=== PATIENT | male | born 1985 | race African-American/Black ===

== ENCOUNTER 2018-07-19 03:21 | Emergency (ER) | payer OTHER, BC ==
--- NOTE | 2018-07-19 04:15 | XR ---
LEFT SHOULDER 3 VIEWS INDICATION: Left shoulder pain COMPARISON: None FINDINGS: AP internal rotation, AP external rotation, and scapular Y views of the left shoulder are obtained. The glenohumeral and acromioclavicular joints are normally aligned. There is no evidence of acute fracture. IMPRESSION: No acute fracture or dislocation identified.
[2018-07-19] MEDS ORDERED: KETOROLAC 30 MG/ML 1 ML VIAL IM STA (04:36)
--- NOTE | 2018-07-19 04:37 | ED ---
Upper Extremity HPI - General Chief Complaint: Extremity Injury, Upper Stated Complaint: Shoulder and neck pain Time Seen by Provider: 07/19/18 03:46 Source: patient, family Mode of arrival: ambulatory Limitations: no limitations - History of Present Illness Initial Comments: Rolando is a pleasant 33-year-old woman who presents the emergency department to [facility] for reevaluation of chronic left arm pain. Patient reports that approximately 3 years ago he was at work when he felt popping in his arm, he was evaluated by medical at work at that time and subsequent followed up with primary care. Patient reports that he has suffered with chronic pain in his left shoulder since that time. Patient reports that earlier this week he was moving something heavy when he felt popping in his shoulder again. He reports since that time he's felt tension in the muscles surrounding his shoulder specifically his traps going up to his neck and tenderness in the shoulder. Patient reports that he feels like his shoulder is popping and clicking more with any movement. He denies any weakness. He reports that and wanes daily dipping on his activities. He denies any acute injury today. Patient reports he needs a note for work so that he make time to see a physician about this chronic problem. - Related Data Previous Rx's Medication Instructions Recorded Ibuprofen [Motrin] 800 mg PO TID #30 tab 07/19/18 Allergies Allergy/AdvReac Type Severity Reaction Status Date / Time No Known Allergies Allergy Verified 07/19/18 03:38 Review of Systems ROS Statement: Those systems with pertinent positive or pertinent negative responses have been documented in the HPI. ROS Other: All systems not noted in ROS Statement are negative. Past Medical History Past Medical History: No Reported History History of Any Multi-Drug Resistant Organisms: None Reported Past Surgical History: No Surgical Hx Reported Past Psychological History: No Psychological Hx Reported Smoking Status: Never smoker Past Alcohol Use History: None Reported Past Drug Use History: None Reported General Exam - General Exam Comments Initial Comments: Physical Exam GENERAL: Patient is well-developed and well-nourished. Patient is nontoxic and well-hydrated and is in no distress. HENT: Normocephalic, Atraumatic. EYES: PERRL, EOMI PULMONARY: Unlabored respirations. No audible rales rhonchi or wheezing was noted. CARDIOVASCULAR: There is a regular rate and rhythm without any murmurs gallops or rubs. ABDOMEN: Soft and nontender with normal bowel sounds. SKIN: Skin is clear with no lesions or rashes and otherwise unremarkable. : Deferred NEUROLOGIC: Patient is alert and oriented x3. Moving all extremities spontaneously MUSCULOSKELETAL: Normal extremities with adequate strength and full range of motion. No lower extremity swelling or edema. No calf tenderness. Full range of motion of the left shoulder, no weakness on exam of the rotator cuff there is some clicking heard with range of motion of the left shoulder Left upper extremity is neurovascularly intact PSYCHIATRIC: Normal psychiatric evaluation. Limitations: no limitations Limitations: no limitations Course Vital Signs 07/19/18 07/19/18 03:33 04:50 Temperature 98.3 F 98.0 F Pulse Rate 56 L 62 Respiratory 20 18 Rate Blood Pressure 135/91 127/78 O2 Sat by Pulse 98 98 Oximetry Medical Decision Making - Medical Decision Making The patient was seen and evaluated history is obtained from the patient Patient has a chronic injury to left shoulder which is exacerbated regularly by his physically demanding job, patient does report exacerbation of his chronic shoulder pain after lifting something heavy earlier in the week. They patient reports he feels that his shoulders clicking in his muscles are very tight Exam with no acute findings, patient does have some clicking in his left shoulder likely related to chronic injury I did discuss with the patient that he will need to follow up with orthopedics for further evaluation She will be given Toradol for his muscular discomfort and referred to orthopedics for follow-up. Patient was provided a work note to have 2 days off with the plan of resting his arm and contacting orthopedics for follow-up. Disposition Clinical Impression: Strain of shoulder Disposition: HOME SELF-CARE Condition: Stable Instructions (If sedation given, give patient instructions): Rotator Cuff Injury (ED) Prescriptions: Ibuprofen [Motrin] 800 mg PO TID #30 tab Is patient prescribed a controlled substance at d/c from ED?: No Referrals: None,Stated [Primary Care Provider] - 1-2 days [facility] [NON-[facility]FF] - 1-2 days lC Kirby MD [REFERRING] - 1-2 days Christopher Vásquez MD [STAFF PHYSICIAN] - 1-2 days
[2018-07-19 05:10] VITALS: BP 127/78; PULSE 62; RESP 18; TEMP 98
== END 2018-07-19 04:52 | disposition home or self-care (01) ==
LOC: EC 03:21
DX: S46.912A Strain of unspecified muscle, fascia and tendon at shoulder and upper arm level, left arm, initial encounter (principal); G89.29 Other chronic pain; X50.9XXA Other and unspecified overexertion or strenuous movements or postures, initial encounter; Y92.69 Other specified industrial and construction area as the place of occurrence of the external cause; Y99.0 Civilian activity done for income or pay
CPT/HCPCS: 73030; 99283; 96372; J1885

== ENCOUNTER 2018-08-05 03:33 | Emergency (ER) | payer BC ==
[2018-08-05 03:42] VITALS: BP 132/98; PULSE 62; RESP 18; TEMP 98.3
--- NOTE | 2018-08-05 04:37 | XR ---
EXAM: XR Pelvis, Complete CLINICAL HISTORY: Pain TECHNIQUE: Multiple views of the bones of the pelvis. COMPARISON: No relevant prior studies available. FINDINGS: Bones/joints: No acute findings. No lytic or blastic lesions. Soft tissues: Unremarkable. IMPRESSION: No acute findings
--- NOTE | 2018-08-05 04:46 | ED ---
Back Pain HPI - General Chief Complaint: Back Pain/Injury Stated Complaint: Back Pain Time Seen by Provider: 08/05/18 03:45 Source: patient Limitations: no limitations - History of Present Illness Initial Comments: This patient is a 33-year-old man who presents to be evaluated for right low back pain. He states that this has come on over the past few days when he is working. 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 He States his employer has had him seen at the medical, where he is reportedly given nonsteroidals which helped a little but did not fully relieve the pain. The patient does not have any weakness or numbness of the legs. He has not had any change in bladder or bowel function. No abdominal pain. He does state that when he goes home and rest the pain clears but it does recur after working and bending lifting. MD Complaint: back pain -: days(s) Similar Symptoms Previously: No Place: work Radiation: none Severity: moderate Quality: aching Consistency: constant Worsens With: movement Context: while lifting, bending Associated Symptoms: denies other symptoms - Related Data Previous Rx's Medication Instructions Recorded Ibuprofen [Motrin] 800 mg PO TID #30 tab 07/19/18 Ibuprofen 800 mg PO TID #20 tablet 08/05/18 Allergies Allergy/AdvReac Type Severity Reaction Status Date / Time No Known Allergies Allergy Verified 08/05/18 03:42 Review of Systems ROS Statement: Those systems with pertinent positive or pertinent negative responses have been documented in the HPI. ROS Other: All systems not noted in ROS Statement are negative. Constitutional: Denies: fever, chills, weakness Respiratory: Denies: cough Gastrointestinal: Denies: abdominal pain, vomiting, diarrhea, constipation Genitourinary: Denies: dysuria, hematuria Musculoskeletal: Reports: as per HPI, back pain Skin: Denies: rash Neurological: Denies: weakness, numbness, paresthesias Past Medical History Past Medical History: No Reported History History of Any Multi-Drug Resistant Organisms: None Reported Past Surgical History: No Surgical Hx Reported Past Psychological History: No Psychological Hx Reported Smoking Status: Never smoker Past Alcohol Use History: None Reported Past Drug Use History: None Reported General Exam Limitations: no limitations General appearance: alert, in no apparent distress Head exam: Present: atraumatic, normocephalic Eye exam: Present: normal appearance. Absent: scleral icterus, conjunctival injection Respiratory exam: Present: normal lung sounds bilaterally. Absent: respiratory distress, wheezes, rales, rhonchi, stridor Cardiovascular Exam: Present: regular rate, normal rhythm, normal heart sounds. Absent: systolic murmur, diastolic murmur, rubs, gallop GI/Abdominal exam: Absent: soft, tenderness, guarding, rebound, pulsatile mass Extremities exam: Present: normal inspection, normal capillary refill. Absent: pedal edema Back exam: Present: normal inspection, full ROM, tenderness (Patient has some mild tenderness near the area of the right SI joint. No evidence of trauma. No deformity.), paraspinal tenderness. Absent: CVA tenderness (R), CVA tenderness (L), vertebral tenderness Neurological exam: Present: alert, normal gait, reflexes normal. Absent: motor sensory deficit Skin exam: Present: warm, dry, intact, normal color. Absent: rash Course Vital Signs 08/05/18 03:39 Temperature 98.3 F Pulse Rate 62 Respiratory 18 Rate Blood Pressure 132/98 O2 Sat by Pulse 97 Oximetry Disposition Clinical Impression: Mechanical back pain Disposition: HOME SELF-CARE Condition: Good Instructions (If sedation given, give patient instructions): Acute Low Back Pain (ED) Prescriptions: Ibuprofen 800 mg PO TID #20 tablet Is patient prescribed a controlled substance at d/c from ED?: No Referrals: Gilles Johnson DO [Primary Care Provider] - 1-2 days Jose Armando Mcneill DO [Doctor of Osteopathic Medicine] - 1-2 days
== END 2018-08-05 05:23 | disposition home or self-care (01) ==
LOC: EC 03:33
DX: M54.5 Low back pain (principal)
CPT/HCPCS: 72202; 99283

== ENCOUNTER 2021-01-29 01:35 | Emergency (ER) | payer BC ==
[2021-01-29 02:18] VITALS: BP 183/78; PULSE 106; RESP 18; TEMP 97.4
[2021-01-29] MEDS ORDERED: PROPARACAINE 0.5% OPHTH DROPS 15 ML BTL LEFT EYE STA (03:03)
[2021-01-29] MEDS ORDERED: KETOTIFEN 0.025% OPHTH DROPS 5 ML BTL LEFT EYE STA (03:03)
[2021-01-29] MEDS ORDERED: dexAMETHasone 2 MG TAB PO STA (03:08)
[2021-01-29] MEDS ORDERED: diphenhydrAMINE 50 MG CAP PO STA (03:08)
[2021-01-29] MEDS ORDERED: FAMOTIDINE 20 MG TAB PO STA (03:08)
[2021-01-29] MEDS ORDERED: POLYMYXIN B-TRIMETHOPRIM SULF (10,000-1) OPHTH DROPS 10 ML BTL LEFT EYE STA (03:09)
--- NOTE | 2021-01-29 03:16 | ED ---
Eye Problem HPI - General Chief complaint: ENT Stated complaint: Eye irritation Time Seen by Provider: 01/29/21 03:02 Source: patient, RN notes reviewed, old records reviewed Mode of arrival: ambulatory Limitations: no limitations - History of Present Illness Initial comments: This is a 35-year-old male to the emergency room today. Patient presents today for evaluation of left eye pain and drainage swelling. Patient does have history of high blood pressure not on high blood pressure medications otherwise has no medical history takes no medications. A consistent with symptoms about a day and a half with no change in vision. No trauma, no other complaints MD chief complaint: eye pain, eye redness -: days(s) Onset Description: gradual Location: left eye Place: home If Injury: none Eye Symptoms: redness, foreign body sensation, itching, discharge Severity: moderate Severity scale (1-10): 4 Consistency: constant Context: recent uri Associated Symptoms: none Treatments Prior to Arrival: none - Related Data Previous Rx's Medication Instructions Recorded Ibuprofen [Motrin] 800 mg PO TID #30 tab 07/19/18 Ibuprofen 800 mg PO TID #20 tablet 08/05/18 Allergies Allergy/AdvReac Type Severity Reaction Status Date / Time No Known Allergies Allergy Verified 01/29/21 02:18 Review of Systems ROS Statement: Those systems with pertinent positive or pertinent negative responses have been documented in the HPI. ROS Other: All systems not noted in ROS Statement are negative. Past Medical History Past Medical History: No Reported History History of Any Multi-Drug Resistant Organisms: None Reported Past Surgical History: No Surgical Hx Reported Past Psychological History: No Psychological Hx Reported Smoking Status: Current some day smoker Past Alcohol Use History: None Reported Past Drug Use History: Marijuana General Exam Limitations: no limitations General appearance: alert, in no apparent distress Head exam: Present: atraumatic, normocephalic, normal inspection Eye exam: Present: normal appearance, PERRL, EOMI, other (Significant left eye chemosis to the left lateral aspect). Absent: scleral icterus, conjunctival injection, periorbital swelling ENT exam: Present: normal exam, mucous membranes moist Neck exam: Present: normal inspection. Absent: tenderness, meningismus, lymphadenopathy Respiratory exam: Present: normal lung sounds bilaterally. Absent: respiratory distress, wheezes, rales, rhonchi, stridor Cardiovascular Exam: Present: regular rate, normal rhythm, normal heart sounds. Absent: systolic murmur, diastolic murmur, rubs, gallop, clicks GI/Abdominal exam: Present: soft, normal bowel sounds. Absent: distended, tenderness, guarding, rebound, rigid Extremities exam: Present: normal inspection, full ROM, normal capillary refill. Absent: tenderness, pedal edema, joint swelling, calf tenderness Back exam: Present: normal inspection Neurological exam: Present: alert, oriented X3, CN II-XII intact Psychiatric exam: Present: normal affect, normal mood Skin exam: Present: warm, dry, intact, normal color. Absent: rash Course Vital Signs 01/29/21 02:10 Temperature 97.4 F L Pulse Rate 106 H Respiratory 18 Rate Blood Pressure 183/78 O2 Sat by Pulse 93 L Oximetry - Reevaluation(s) Reevaluation #1: 01/29/21 03:14 Medical record is reviewed Reevaluation #2: 01/29/21 03:14 symptoms improved here in the ER Reevaluation #3: 01/29/21 03:14 Patient informed of results and questions answered Medical Decision Making - Medical Decision Making 35 male presented today for evaluation of left eye drainage and swelling. Patient does have significant chemosis of his left lateral conjunctiva, he does have some green drainage from his we will treat as both bacterial or ALLERGIC chemosis, patient can be discharged home Disposition Clinical Impression: Allergic conjunctivitis, Chemosis of left conjunctiva Disposition: HOME SELF-CARE Condition: Good Instructions (If sedation given, give patient instructions): Conjunctivitis (ED) Is patient prescribed a controlled substance at d/c from ED?: No Referrals: Gilles Johnson DO [Primary Care Provider] - 1-2 days Domingo Ross MD [STAFF PHYSICIAN] - 1-2 days
== END 2021-01-29 04:07 | disposition home or self-care (01) ==
LOC: EC 01:35
DX: H10.12 Acute atopic conjunctivitis, left eye (principal); H11.422 Conjunctival edema, left eye; F17.200 Nicotine dependence, unspecified, uncomplicated; F12.90 Cannabis use, unspecified, uncomplicated; Z79.1 Long term (current) use of non-steroidal anti-inflammatories (NSAID)
CPT/HCPCS: 99283; J8540

== ENCOUNTER 2021-03-17 15:36 | Emergency (ER) | payer BC ==
[2021-03-17 15:43] VITALS: TEMP 98.6
[2021-03-17 19:30] VITALS: BP 134/77; PULSE 74; RESP 20
--- NOTE | 2021-03-17 19:46 | XR ---
EXAMINATION TYPE: XR chest 2V DATE OF EXAM: 03/17/2021 COMPARISON: NONE HISTORY: Difficulty breathing TECHNIQUE: 2 views FINDINGS: Heart and mediastinum are normal. Lungs are clear. Diaphragm is normal. Bony thorax appears normal. IMPRESSION: Normal chest
[2021-03-17] MEDS ORDERED: CLINDAMYCIN 150 MG CAP PO STA (20:03)
--- NOTE | 2021-03-17 20:03 | ED ---
General Adult HPI - General Chief complaint: Upper Respiratory Infection Stated complaint: HAYES, vomiting Time Seen by Provider: 03/17/21 18:59 Source: patient, RN notes reviewed, old records reviewed Mode of arrival: ambulatory Limitations: no limitations - History of Present Illness Initial comments: Patient was evaluated when she was placed in a room. Patient is a 36-year-old male complaining of somewhat fatigued, however denies being Covid positive. He has no URI. Had a mild cough earlier which has resolved. Patient states he did break a upper right tooth and has a dentist appointment scheduled for Friday. He is seeking antibiotics until then. Would like to be evaluated. He believes he is Covid negative. Previously had Covid but not vaccine. Denies any cough, chest pain, abdominal pain, nausea, vomiting. Thinks he may have had an anxiety attack earlier which prompted him to come to the emergency department which is since resolved. He states he has had them before. Currently denies any other acute symptoms at this time. Seeking antibiotics for his tooth pain. States during his anxiety attack he may have been wheezing. No history of asthma or smoking. tooth broke on friday. - Related Data Previous Rx's Medication Instructions Recorded Ibuprofen [Motrin] 800 mg PO TID #30 tab 07/19/18 Ibuprofen 800 mg PO TID #20 tablet 08/05/18 Clindamycin [Cleocin] 450 mg PO Q8HR 7 Days #63 cap 03/17/21 Allergies Allergy/AdvReac Type Severity Reaction Status Date / Time No Known Allergies Allergy Verified 03/17/21 15:44 Review of Systems ROS Statement: Those systems with pertinent positive or pertinent negative responses have been documented in the HPI. Review of Systems: CONST: Denies fever EYES: Denies blurry vision ENT: Endorses tooth pain C/V: Denies Chest pain RESP: Denies shortness of breath GI: Denies abdominal pain : Denies dysuria SKIN: Denies rash. MSK: Denies joint pain. NEURO: Denies headache ROS Other: All systems not noted in ROS Statement are negative. Past Medical History Past Medical History: No Reported History History of Any Multi-Drug Resistant Organisms: None Reported Past Surgical History: No Surgical Hx Reported Past Psychological History: No Psychological Hx Reported Smoking Status: Current some day smoker Past Alcohol Use History: None Reported Past Drug Use History: Marijuana General Exam - General Exam Comments Initial Comments: General: Appears in no acute distress. HEAD: Normal with no signs of head trauma. EYES: EOMI ENT: Right upper molar appears to have a broken tooth that is partially missing. Surrounding edema without any surrounding purulence or fluctuance. Floor the mouth is unremarkable. No tongue swelling. Posterior oropharynx within normal limits. No stridor. RESPIRATORY: Clear breath sounds bilaterally without any wheezes or rhonchi. No increased work of breathing. C/V: Regular rate and rhythm. S1 and S2 auscultated, no edema, peripheral pulses 2+ and intact throughout ABD: Abdomen is nondistended. EXT: Normal range of motion, no obvious deformity SKIN: No rashes or lesions observed on exposed skin. NEURO: No acute deficits. Alert and oriented 4. Limitations: no limitations Course Vital Signs 03/17/21 03/17/21 15:41 19:27 Temperature 98.6 F Pulse Rate 64 74 Respiratory 22 20 Rate Blood Pressure 180/80 134/77 O2 Sat by Pulse 97 97 Oximetry Medical Decision Making - Medical Decision Making Based on the patient's presentation and physical exam, I'm concerned for possible pulmonary process for his shortness of breath earlier and therefore we will obtain a chest x-ray. Sadie jolly already detailed in triage which was negative. He will require antibiotics for his tooth and he already has done his follow-up. Patient was in agreement this plan. He otherwise has no acute complaints and I do not believe that further laboratory studies or imaging are required at this time. Chest x-ray shows no acute cardiopulmonary process. I did the patient on the results. He will be given antibiotics. He will be discharged home. He was in agreement this plan. Patient was given a work note. Patient will be given a dose of clindamycin and prior to discharge. I will provide the patient with a prescription for clindamycin 450 3 times a day for 7 days. I instructed the patient to follow up with their PCP in the next 3 days. Patient already has follow-up with dentistry on Friday. I explained that the patient should return to the emergency department if they experience any worsening symptoms. Strict return precautions were discussed with the patient. The patient expressed understanding of these instructions. I answered all questions that the patient had. The patient was discharged home in good condition with their prescriptions and follow up information. - Lab Data Lab Results 12/11/21 Range/Units 15:48 Coronavirus (PCR) Not Detected (Not Detectd) Disposition Clinical Impression: Tooth infection Disposition: HOME SELF-CARE Condition: Good Instructions (If sedation given, give patient instructions): Toothache (ED) Prescriptions: Clindamycin [Cleocin] 450 mg PO Q8HR 7 Days #63 cap Is patient prescribed a controlled substance at d/c from ED?: No Referrals: None,Stated [Primary Care Provider] - 1-2 days
== END 2021-03-17 20:16 | disposition home or self-care (01) ==
LOC: EC 15:36
DX: K04.7 Periapical abscess without sinus (principal); F17.200 Nicotine dependence, unspecified, uncomplicated; F12.90 Cannabis use, unspecified, uncomplicated; Z20.822 Contact with and (suspected) exposure to COVID-19
CPT/HCPCS: 71046; 87635; 99283

== ENCOUNTER 2024-07-06 15:51 | Emergency (ER) | payer BC ==
--- NOTE | 2024-07-06 17:16 | ED ---
Recheck HPI - General Chief Complaint: Recheck/Abnormal Lab/Rx Stated Complaint: ABN EKG Time Seen by Provider: 07/06/24 16:20 Source: patient, RN notes reviewed, old records reviewed Mode of arrival: ambulatory Limitations: no limitations - History of Present Illness Initial Comments: This is a 39-year-old male to ER for evaluation of facial numbness and tingling. Patient states he has recent diagnosis of sinus infection sinusitis numbness ting left side of his face but denies any headache no arms or legs weakness patient has no other new complaints. MD Complaint: other (Neurologist believes he has recurrent sinus infection) -: days(s) Symptoms Since Prior Visit: no new symptoms Associated Symptoms: none Treatments Prior to Arrival: other (0) - Related Data Home Medications Medication Instructions Recorded Confirmed Ascorbic Acid [Vitamin C] 1,000 mg PO DAILY 03/17/21 03/17/21 Cholecalciferol [Vitamin D3 (25 25 mcg PO DAILY 03/17/21 03/17/21 Mcg = 1000 Iu)] Zinc 50 mg PO DAILY 03/17/21 03/17/21 Previous Rx's Medication Instructions Recorded Clindamycin [Cleocin] 450 mg PO Q8HR 7 Days #63 cap 03/17/21 Amoxic-Pot Clav 875-125Mg 1 tab PO Q12HR #28 tablet 07/06/24 [Augmentin 875-125] Allergies Allergy/AdvReac Type Severity Reaction Status Date / Time No Known Allergies Allergy Verified 07/06/24 16:16 Review of Systems ROS Statement: Those systems with pertinent positive or pertinent negative responses have been documented in the HPI. ROS Other: All systems not noted in ROS Statement are negative. Past Medical History Past Medical History: No Reported History History of Any Multi-Drug Resistant Organisms: None Reported Past Surgical History: No Surgical Hx Reported Past Psychological History: No Psychological Hx Reported Smoking Status: Current some day smoker Past Alcohol Use History: None Reported Past Drug Use History: Marijuana General Exam Limitations: no limitations General appearance: alert, in no apparent distress Head exam: Present: atraumatic, normocephalic, normal inspection Eye exam: Present: normal appearance, PERRL, EOMI. Absent: scleral icterus, conjunctival injection, periorbital swelling ENT exam: Present: normal exam, mucous membranes moist Neck exam: Present: normal inspection. Absent: tenderness, meningismus, lymphadenopathy Respiratory exam: Present: normal lung sounds bilaterally. Absent: respiratory distress, wheezes, rales, rhonchi, stridor Cardiovascular Exam: Present: regular rate, normal rhythm, normal heart sounds. Absent: systolic murmur, diastolic murmur, rubs, gallop, clicks GI/Abdominal exam: Present: soft, normal bowel sounds. Absent: distended, tenderness, guarding, rebound, rigid Extremities exam: Present: normal inspection, full ROM, normal capillary refill. Absent: tenderness, pedal edema, joint swelling, calf tenderness Back exam: Present: normal inspection Neurological exam: Present: alert, oriented X3, CN II-XII intact Psychiatric exam: Present: normal affect, normal mood Skin exam: Present: warm, dry, intact, normal color. Absent: rash Course Vital Signs 07/06/24 07/06/24 16:17 17:36 Temperature 98.6 F 98.0 F Pulse Rate 65 64 Respiratory 20 16 Rate Blood Pressure 134/82 134/83 O2 Sat by Pulse 97 99 Oximetry - Reevaluation(s) Reevaluation #1: Medical records reviewed Reevaluation #2: Patient's symptoms improved here in the ER Reevaluation #3: Patient informed of results questions answered Reevaluation #4: Was pt. sent in by a medical professional or institution (, PA, PERCHER, urgent care, hospital, or [facility]...) When possible be specific @ -no Did you speak to anyone other than the patient for history (EMS, parent, family, police, friend...)? What history was obtained from this source @ -no Did you review nursing and triage notes (agree or disagree)? Why? @ -agree Are old charts reviewed (outside hosp., previous admission, EMS record, old EKG, old radiological studies, urgent care reports/EKG's, [facility] records)? Report findings @ -yes Differential Diagnosis (chest pain, altered mental status, abdominal pain women, abdominal pain men, vaginal bleeding, weakness, fever, dyspnea, syncope, headache, dizziness, GI bleed, back pain, seizure, CVA, palpatations, mental health, musculoskeletal)? @ -prior EKG interpreted by me (3pts min.). @ -yes X-rays interpreted by me (1pt min.). @ -yes negative for acute disease CT interpreted by me (1pt min.). @ -no U/S interpreted by me (1pt. min.). @ -no What testing was considered but not performed or refused? (CT, X-rays, U/S, labs)? Why? @ -none What meds were considered but not given or refused? Why? @ -none Did you discuss the management of the patient with other professionals (professionals i.e. DrCoral, PA, PERCHER, lab, RT, psych nurse, psychologist social, marine electronics repairer, teacher, aoc director combat operations officer, caser shoe parts)? Give summary @ -no Was smoking cessation discussed for >3mins.? @ -no Was critical care preformed (if so, how long)? @ -no Were there social determinants of health that impacted care today? How? (Homelessness, low income, unemployed, alcoholism, drug addiction, transportation, low edu. Level, literacy, decrease access to med. care, senior care, rehab)? @ -none Was there de-escalation of care discussed even if they declined (Discuss DNR or withdrawal of care, Hospice)? DNR status @ -no What co-morbidities impacted this encounter? (DM, HTN, Smoking, COPD, CAD, Cancer, CVA, ARF, Chemo, Hep., AIDS, mental health diagnosis, sleep apnea, morbid obesity)? @ -none Was patient admitted / discharged? Hospital course, mention meds given and route, prescriptions, significant lab abnormalities, going to OR and other pertinent info. @ -39 male to ER for facial evaluation of facial numbness, patient does have sinus infection no acute neurological deficit noted on exam patient can be discharged home Discharge Undiagnosed new problem with uncertain prognosis? @ -no Drug Therapy requiring intensive monitoring for toxicity (Heparin, Nitro, Insulin, Cardizem)? @ -no Were any procedures done? @ -no Diagnosis/symptom? @ - Acute, or Chronic, or Acute on Chronic? @ -Acute Uncomplicated (without systemic symptoms) or Complicated (systemic symptoms)? @ -Complicated Side effects of treatment? @ -no Exacerbation, Progression, or Severe Exacerbation? @ -exacerbation Poses a threat to life or bodily function? How? (Chest pain, [place], [place], pneumonia, PE, COPD, DKA, ARF, appy, cholecystitis, CVA, Diverticulitis, Homicidal, Suicidal, threat to staff... and all critical care pts) @ -yes 04/08/25 21:51 Medical Decision Making - Medical Decision Making 39 male to ER for facial evaluation of facial numbness, patient does have sinus infection no acute neurological deficit noted on exam patient can be discharged home - EKG Data -: EKG Interpreted by Me (EKG is sinus bradycardia 59 NE 170 QRS 91 QTc 397) Disposition Clinical Impression: Sinusitis, Otitis media, left Disposition: HOME SELF-CARE Condition: Good Instructions (If sedation given, give patient instructions): Sinusitis (ED), Ear Infection (ED) Prescriptions: Amoxic-Pot Clav 875-125Mg [Augmentin 875-125] 1 tab PO Q12HR #28 tablet Is patient prescribed a controlled substance at d/c from ED?: No Referrals: Donn Johnson DO [Primary Care Provider] - 1-2 days Time of Disposition: 17:00
[2024-07-06] MEDS: AMOXIC-POT CLAV 875-125MG 1 EACH TAB PO STA (17:30)
[2024-07-06 17:37] VITALS: BP 134/83; PULSE 64; RESP 16; TEMP 98
== END 2024-07-06 17:38 | disposition home or self-care (01) ==
LOC: EC 15:51
DX: H66.92 Otitis media, unspecified, left ear (principal); J32.9 Chronic sinusitis, unspecified; F17.200 Nicotine dependence, unspecified, uncomplicated
CPT/HCPCS: 99284